=== PATIENT | female | born 1980 | race Caucasian/White ===

== ENCOUNTER → 2016-12-17 | Outpatient (CLI) | payer BC ==
--- NOTE | 2016-12-17 09:28 | DIAGNOSTIC IMAGING REPORT ---
FUSION CT SINUSES W/O HISTORY: J34.3 Hypertrophy of both inferior nasal turbinates PATIENT IS ST TECHNIQUE: Multiaxial CT images of the sinuses were performed reformatted in the coronal plane without contrast. COMPARISON STUDY: None. FINDINGS: Mild mucosal thickening of the frontal sinuses with partial opacification of the bilateral frontoethmoidal recesses. Mild right nasal septal deviation. Mild mucosal thickening within the sphenoid sinuses and left maxillary sinus. Moderate mucosal thickening and a small amount of bubbly secretions within the right maxillary sinus. Partial opacification of the bilateral ethmoid air cells, right greater than left. The mastoid air cells are clear. Incidental is made of a posterior fusion defect at C1. No evidence for carotid canal dehiscence. Prior bilateral uncinectomies. The lamina papyracea and orbital floors are intact. A few trace fluid levels within the ethmoid air cells. The middle turbinates are hypoplastic and may be partially resected. The orbits and visualized brain parenchyma are unremarkable. IMPRESSION: 1. Mild/moderate acute on chronic paranasal sinusitis as described above. This is most pronounced within the right maxillary sinus. 2. Mild right nasal septal deviation. 3. Postoperative changes as described above. Electronically signed by: Keno Varela M.D. 12/17/2016 9:26 AM Dictated Date/Time: 12/17/2016 9:18 AM
== END | disposition home or self-care (01) ==
LOC: C.CTS 08:53
DX: J34.3 Hypertrophy of nasal turbinates (principal); J01.00 Acute maxillary sinusitis, unspecified